=== PATIENT | female | born 1930 | race Caucasian/White ===

== ENCOUNTER 2017-02-01 02:26 | Emergency (ER) | payer MEDICARE, OTHER ==
[~2017-02-01] VITALS: Ht 157.5 cm; Wt 75.0 kg
[2017-02-01 02:37] VITALS: Ht 157.5 cm; Wt 75.0 kg
[2017-02-01] MEDS ORDERED: SOD CHLORIDE 0.9% 500 ML IV STA (02:50)
[2017-02-01] MEDS ORDERED: LIDOCAINE 1%/EPI 30 ML INJ INJ STA (03:00)
[2017-02-01 03:26] VITALS: TEMP 98.1
[2017-02-01 03:54] LABS: INR 0.98; PROTIME 13.1 Sec (11.9-14.9)
[2017-02-01 03:55] LABS: PARTIAL THROMBOPLASTIN TIME 29.6 Sec (25.0-35.0)
[2017-02-01 04:06] LABS: BASOPHIL # 0.1 10^3/ul (0.0-0.1); BASOPHILS % 0.5 % (0.0-2.0); EOSINOPHILS # 0.4 10^3/ul (0.0-0.5); EOSINOPHILS % 3.5 % (0.0-7.0); HEMATOCRIT 35.2 % (37.0-47.0); HEMOGLOBIN 11.9 g/dl (12.0-16.0); LYMPHOCYTES # 2.8 10^3/ul (0.8-2.9); LYMPHOCYTES % 28.3 % (15.0-51.0); MEAN CORPUSCULAR HEMOGLOBIN 31.6 pg (29.0-33.0); MEAN CORPUSCULAR HGB CONC 33.8 g/dl (32.0-37.0); MEAN CORPUSCULAR VOLUME 93.4 fl (82.0-101.0); MEAN PLATELET VOLUME 11.4 fl (7.4-10.4); MONOCYTES % 10.2 % (0.0-11.0); NEUTROPHIL # 5.6 10^3/ul (1.6-7.5); NEUTROPHILS % 56.5 % (39.0-77.0); PLATELET COUNT 206 10^3/UL (140-415); RED BLOOD COUNT 3.77 10^6/ul (4.20-5.40); RED CELL DISTRIBUTION WIDTH 12.9 % (11.5-14.5); WHITE BLOOD COUNT 9.9 10^3/ul (4.8-10.8)
[2017-02-01 04:20] LABS: UR BILIRUBIN (Dip) NEGATIVE (NEGATIVE); UR BLOOD (Dip) NEGATIVE (NEGATIVE); UR CLARITY CLEAR (CLEAR); UR COLOR YELLOW (YELLOW); UR GLUCOSE (Dip) NEGATIVE (NEGATIVE); UR KETONES (Dip) NEGATIVE (NEGATIVE); UR LEUKOCYTE ESTERASE (Dip) TRACE Leu/ul (NEGATIVE); UR NITRITE (Dip) NEGATIVE (NEGATIVE); UR SPECIFIC GRAVITY (Dip) 1.014 (1.003-1.030); UR TOTAL PROTEIN (Dip) NEGATIVE (NEGATIVE); UR UROBILINOGEN (Dip) NEGATIVE (NEGATIVE)
--- NOTE | 2017-02-01 04:20 | RADRPT ---
PROCEDURE: CT BRAIN WITHOUT CONTRAST CLINICAL INDICATION: 86-year-old female with trauma. TECHNIQUE: The study was performed utilizing [employer] VCT 64-slice CT scanner. Direct axial sections were obtained from the foramen magnum to the vertex without the use of intravenous contrast material. Sagittal and coronal reformations were obtained. Sagittal and coronal reformations were obtained. One or more the following dose reduction techniques were utilized: automated exposure cont rol, adjustment of the mA and/or kV according to patient's size and/or use of iterative reconstructi on technique. DICOM images are available. The images were viewed on a PACS workstation. CTD/vol = 43.1 mGy; Total Exam DLP = 720.2 mGy-cm. COMPARISON: None. FINDINGS: There is moderate degree of diffuse cortical and central atrophy with compensatory ventricular enlar gement. There is a cavum septum pellucidum present. There is no evidence for mass effect or midline shift. There are confluent periventricular and deep white matter areas of decreased density consist ent with microangiopathic ischemic changes. There is an old lacunar infarct within the right putamen . There is a small right inferior parietal ovoid calcific density measuring 2 x 2 mm. There is no ev idence for acute intra or extra-axial blood. Calcifications are seen within the intracranial carotid arteries bilaterally. The bony calvarium is intact. The partially visualized paranasal sinuses and mastoid air cells are without significant abnormal soft tissue. IMPRESSION: 1. Moderate diffuse atrophy. 2. Microangiopathic ischemic changes. 3. Old right basal ganglia lacunar infarct. 4. Small nonspecific right inferior parietal 2 mm ovoid calcific density. 5. Vascular calcifications. .Terry García MD, Date Time Electronically viewed and signed by .Terry García MD, on 02/01/2017 04:19 .M/
[2017-02-01 04:21] LABS: ADD UMIC YES; UR ASCORBIC ACID NEGATIVE (NEGATIVE); UR RBC 0 /HPF (0-5); UR SQUAMOUS EPITHELIAL CELL FEW /HPF (FEW)
[2017-02-01 04:42] VITALS: BP 123/57; PULSE 70; RESP 20
[2017-02-01] MEDS ORDERED: CEPH-443 PO (05:14)
[2017-02-01] MEDS ORDERED: NAPR-685 PO (05:14)
--- NOTE | 2017-02-01 05:18 | RADRPT ---
PROCEDURE: CT CERVICAL SPINE WITHOUT CONTRAST CLINICAL INDICATION: 86-year-old female with trauma. TECHNIQUE: The study was performed utilizing a [employer] VCT 64-slice CT scanner. Direct axia l sections were obtained through the cervical spine. Coronal and sagittal re-formations were obtain ed. One or more of the following dose reduction techniques were utilized: automated exposure control , adjustment of the mA and/or kV according to patient's size and/or the use of iterative reconstruct ion technique. DICOM images are available. The images were viewed on a PACS workstation. CTD/vol = 2 2.2 mGy; Total Exam DLP = 499.3 mGy-cm. COMPARISON: None. FINDINGS: There is straightening of the normal cervical lordosis. There is no evidence for an acute cervical s pine fracture. Degenerative changes are seen within the atlantoaxial junction region. There is ossif ication of the transverse ligament. At C2-3 there are mild bilateral uncovertebral and moderate facet degenerative changes without signi ficant central or foraminal stenosis. At C3-4 there is mild anterolisthesis of approximately 15% with mild disc space narrowing. There is moderate bilateral uncovertebral and facet degenerative changes resulting in [id number] right and mild left foraminal stenosis. At C4-5 there is moderate disc space narrowing. There is anterolisthesis of approximately 10%. There is mild bilateral uncovertebral and facet degenerative changes without significant central or sahil inal stenosis. At C5-6 there is moderate disc space narrowing. There is posterior disk-osteophyte complex projectin g 3 mm beyond the posterior margin. There are bilateral uncovertebral degenerative changes resulting in mild bilateral foraminal stenosis. At C6-7 there is marked disc space narrowing. There is endplate sclerosis. There is posterior disk-o steophyte complex projecting 3 mm beyond the posterior margin. There are bilateral uncovertebral deg enerative changes resulting in mild bilateral foraminal stenosis. At C7-T1 there is disc space narrowing. There is endplate sclerosis. There is posterior disk-osteoph yte complex projecting 3 mm beyond the posterior margin. There are bilateral uncovertebral degenerat ana paula changes resulting in [id number] bilateral foraminal stenosis. At C7-T1 there are minimal uncovertebral degenerative changes resulting in minimal bilateral foramin al stenosis. There is a compression fracture of the superior T1 vertebral body with approximately 20% loss of hei ght which does not appear to be acute. Dystrophic calcifications are seen within the peritonsillar regions. The carotid bifurcations are medially positioned and calcified. The superior aspect of a median sternotomy is noted. IMPRESSION: 1. Straightening of the normal cervical lordosis. 2. No CT evidence for acute cervical spine fracture. 3. Cervical spondylosis. 4. Superior T1 compression fracture (20%) of indeterminate age but does not appear to be acute. 5. Bilateral carotid bifurcation region calcifications. .Terry García MD, MD Date Time Electronically viewed and signed by .Terry García MD, MD on 02/01/2017 05:17 .Oliverio/
--- NOTE | 2017-02-01 05:32 | ERD ---
ER Documentation Chief Complaint Chief Complaint JENNY [id number] from home,slip and fall, no KO, lac on the back of the head HPI This 86-year-old female presents to the emergency room after she fell and hit her head on the couch causing a laceration with significant bleeding. She states that she was walking in the house in the dark when she saw something she wanted to clean up near the couch and slipped and hit her head. Denies any chest pain, lightheadedness shortness of breath. Currently denies all pain. Has not had any dysuria fever chills recently. ROS All systems reviewed and are negative except as per history of present illness. Medications Home Meds Active Scripts Cephalexin* (Keflex*) 500 Mg Capsule, 500 MG PO TID for 3 Days, CAP Prov:BAMBI PALMSHUA DO 02/01/17 Naproxen* (Naproxen*) 375 Mg Tablet, 375 MG PO BID Y for PAIN, #14 TAB Prov:MAYITO PALM DO 02/01/17 Allergies Allergies: Coded Allergies: No Known Allergy (Unverified , 02/01/17) PMhx/Soc Hx Alcohol Use: No Smoking Status: Never smoker Physical Exam Vitals Vital Signs Date Time Temp Pulse Resp B/P Pulse Ox O2 Delivery O2 Flow Rate FiO2 02/01/17 04:42 70 20 123/57 96 Room Air 02/01/17 03:26 98.1 69 20 139/54 100 02/01/17 02:37 97.5 73 18 157/67 97 Physical Exam Const: [] Mild distress. Head: Right posterior scalp with 3 cm vertical laceration with some active bleeding. Mild surrounding soft tissue swelling. No galeal involvement. Eyes: Normal Conjunctiva ENT: Normal External Ears, Nose and Mouth. Neck: Full range of motion.. No midline tenderness. Resp: Clear to auscultation bilaterally Cardio: Regular rate and rhythm, no murmurs Abd: Soft, non tender, non distended. Normal bowel sounds Skin: No petechiae or rashes Back: No midline or flank tenderness Ext: No cyanosis, or edema Neur: Awake and alert Psych: Normal Mood and Affect Result Diagram: 02/01/17 0311 Results 24 hrs Laboratory Tests Test 02/01/17 02:50 02/01/17 03:11 Urine Color YELLOW Urine Clarity CLEAR Urine pH 5.0 Urine Specific [place] 1.014 Urine Ketones NEGATIVEmg/dL Urine Nitrite NEGATIVEmg/dL Urine Bilirubin NEGATIVEmg/dL Urine Urobilinogen NEGATIVEmg/dL Urine Leukocyte Esterase TRACELeu/ul Urine Microscopic RBC 0/HPF Urine Microscopic WBC 1/HPF Urine Squamous Epithelial Cells FEW/HPF Urine Hemoglobin NEGATIVEmg/dL Urine Glucose NEGATIVEmg/dL Urine Total Protein NEGATIVEmg/dl White Blood Count 9.910^3/ul Red Blood Count 3.7710^6/ul Hemoglobin 11.9g/dl Hematocrit 35.2% Mean Corpuscular Volume 93.4fl Mean Corpuscular Hemoglobin 31.6pg Mean Corpuscular Hemoglobin Concent 33.8g/dl Red Cell Distribution Width 12.9% Platelet Count 74420^3/UL Mean Platelet Volume 11.4fl Neutrophils % 56.5% Lymphocytes % 28.3% Monocytes % 10.2% Eosinophils % 3.5% Basophils % 0.5% Nucleated Red Blood Cells % 0.0/100WBC Neutrophils # 5.610^3/ul Lymphocytes # 2.810^3/ul Monocytes # 1.010^3/ul Eosinophils # 0.410^3/ul Basophils # 0.110^3/ul Nucleated Red Blood Cells # 0.010^3/ul Prothrombin Time 13.1Sec Prothrombin Time Ratio 1.0 INR International Normalized Ratio 0.98 Activated Partial Thromboplast Time 29.6Sec Current Medications Medications (Trade) Dose Ordered Sig/Lisette Route PRN Reason Start Time Stop Time Status Last Admin Dose Admin Sodium Chloride (NS) 500 ml @ 500 mls/hr Q1H STAT IV 02/01/17 02:50 02/01/17 03:49 DC 02/01/17 03:26 Lidocaine/ Epinephrine (Xylocaine 1%/ Epi (Pf)) 30 ml ONCE STAT INJ 02/01/17 03:00 02/01/17 03:01 DC 02/01/17 03:26 Procedures/MDM Apparent mechanical fall and elderly female. Positive leukocyte esterase urinalysis trace amounts. No white blood cells otherwise. Other laboratories normal. No signs of ischemia on EKG or laboratories. Laceration repair in the emergency room. No evidence of intracranial hemorrhage on CT. normal neurological exam. Patient was monitored and had no signs of instability. I am going to discharge her with primary care follow-up in 2 3 days and return instructions in 10 days for staple removal. Primary care follow-up in 2-3 days and strict return precautions as well. Discharge with naproxen. CT brain interpretation: I see no acute process. No skull fracture, no hemorrhage, no midline shift, no mass-effect, no acute or chronic infarct. EKG interpretation: Normal sinus rhythm rate of 72, left axis deviation, normal intervals. Nonspecific ST-T wave abnormality. Borderline EKG Departure Diagnosis: Primary Impression: Laceration of scalp Additional Impressions: Head injury Normocytic anemia Condition: Stable Patient Instructions: HEAD INJURY, No Wake-Up (Adult), Laceration, Scalp Additional Instructions: Call your primary care doctor TOMORROW for an appointment during the next 2-3 days. Return for staple removal in 9-11 days. See the doctor sooner or return here if your condition worsens before your appointment time. MAYITO PALM DO Feb 01, 2017 05:32
[2017-02-01 05:35] LABS: ANION GAP 19 (8-16); BLOOD UREA NITROGEN 29 mg/dl (7-20); CARBON DIOXIDE 22 mmol/L (21-31); CHLORIDE 108 mmol/L (97-110); CREATININE 1.33 mg/dl (0.44-1.00); GLUCOSE 125 mg/dl (70-220); SODIUM 145 mmol/L (135-144)
[2017-02-01 05:47] LABS: TROPONIN-I < 0.012 ng/ml (0.00-0.12)
== END 2017-02-01 05:59 | disposition home or self-care (01) ==
LOC: E/R 02:26
DX: S01.01XA Laceration without foreign body of scalp, initial encounter (principal); D64.9 Anemia, unspecified; R06.02 Shortness of breath; W01.198A Fall on same level from slipping, tripping and stumbling with subsequent striking against other object, initial encounter; Y92.009 Unspecified place in unspecified non-institutional (private) residence as the place of occurrence of the external cause
CPT/HCPCS: 12002; 36415; 70450; 72125; 80048; 81001; 84484; 85025; 85610; 85730; 93005; 99285; J7040

== ENCOUNTER 2017-09-28 05:20 | Inpatient (IN) | END 2017-10-09 15:50 | DRG 469 ==